=== PATIENT | female | born 1975 | race African-American/Black ===

== ENCOUNTER → 2020-02-16 | Outpatient (CLI) | payer OTHER | LOC: M.LAB 15:36 | PROVIDERS: ATTEND Orthopaedic Surgery | DX: Z01.812 Encounter for preprocedural laboratory examination (principal); E78.6 Lipoprotein deficiency; Z11.59 Encounter for screening for other viral diseases ==

== ENCOUNTER → 2020-02-21 | Outpatient (CLI) | payer OTHER | LOC: M.LAB 08:30 | PROVIDERS: ATTEND Anesthesiology | DX: E87.6 Hypokalemia (principal) ==